=== PATIENT | female | born 1935 | race Caucasian/White ===

== ENCOUNTER → 2016-03-28 | Outpatient (CLI) | payer MEDICARE, OTHER ==
--- NOTE | 2016-03-30 16:52 | DIREP ---
PROCEDURE: BONE DENSITY PERIPHERAL COMPARISON: None. INDICATIONS: Z13.820 OSTEOPOROSIS TECHNIQUE: A dual photon bone densitometry was performed in the lumbar spine and in both the hips. FINDINGS: The bone mineral density as measured from L1 through L4 is 1.268 g/ cm2. The standard deviation of the T-score is +0.6. The bone mineral density in the left femoral neck is 0.937 g/cm2. The standard deviation of the Tscore is - 0.7. The bone mineral density in the right femoral neck is 0.968 g/cm2. The standard deviation of the T-score is -0.5. Based upon these values, the bone mineral density is within normal limits. The 10-year FRAX probability is as follows: The patient has a 1.8 percent chance of an insufficiency hip fracture and a 9.8 percent chance of a major osteoporotic fracture over the next 10 years. CONCLUSION: 1. Normal bone mineral densitometry. 10-year FRAX probability as above. Dictated by: Jluis Cali MD on 03/28/2016 at 02:20 PM Typed by: SANTY on 03/28/2016 at 03:04 PM ETH
== END | disposition home or self-care (01) ==
LOC: BD 13:39
PROVIDERS: ATTEND Physician Assistant Medical
DX: Z13.820 Encounter for screening for osteoporosis (principal); M85.88 Other specified disorders of bone density and structure, other site; M81.0 Age-related osteoporosis without current pathological fracture
CPT/HCPCS: 77080

== ENCOUNTER → 2016-11-22 | Outpatient (CLI) | payer MEDICARE, OTHER ==
[~2016-11-22] VITALS: Ht 152.4 cm; Wt 78.9 kg
[~2016-11-22] MED LIST: LEXISCAN IV STA
--- NOTE | 2016-11-23 19:34 | STRESS ---
DATE OF SERVICE: 11/22/2016 INDICATIONS: An 81-year-old lady with coronary artery disease, peripheral vascular disease, who elected for a stress test to risk stratify coronary artery disease and to evaluate for an obstructive coronary artery lesion. PROCEDURE: The patient presented to [facility] in a fasting condition and she signed the proper consent. Baseline blood pressure was 178/85 mmHg, heart rate of 82, and the EKG showed a normal sinus rhythm without acute ischemic changes. The patient was injected with 0.4 mg of regadenoson followed by the stress dose of technetium sestamibi. One minute post infusion, blood pressure was 180/76 mmHg and heart rate 101, the patient remained asymptomatic, no ST changes of ischemia noted, no arrhythmia. The recovery phase was uneventful. Myocardial perfusion imaging study was performed using technetium sestamibi on the same day as the stress rest protocol showing the followin. The study quality was good, attenuation artifacts were corrected. The prone position was available. 2. LV cavity was stable, no evidence of TID (transient ischemic dilatation). 3. SPECT perfusion imaging study was normal. No perfusion defects, ischemia, or scarring noted. 4. Gated function study showed normal wall motion and wall thickening. EF was 70% and stroke volume 36 mL. IMPRESSION: 1. Nondiagnostic stress portion of the LexiScan. 2. No EKG changes of ischemia. 3. No arrhythmia. 4. Normal hemodynamic response. 5. Myocardial perfusion imaging study was normal, no evidence of perfusion defects, ischemia, or scarring. 6. Gated function study showed normal wall motion and wall thickening. EF was 70%. 7. This study qualifies for a low risk for obstructive coronary artery disease by myocardial perfusion imaging criteria. Morgan Cesar MD DR: UMAIR/nicky JOB# [id number]
--- NOTE | 2016-11-26 16:33 | ECHO ---
DATE OF SERVICE: 11/22/2016 INDICATIONS: An 81-year-old lady with coronary artery disease, elected for an echocardiographic study for evaluation of any wall motion abnormality, structural heart disease or valvular heart condition. FINDINGS: 1. Study quality is fair. 2. Underlying rhythm is sinus rhythm. 3. LV function is preserved around 60%. No significant wall motion abnormality noted, mild concentric LVH. No LVOT obstruction. LV dimensions are normal at 3.8 cm in end diastolic dimension. 4. RV size and EF were normal. 5. Both atria showed mild increase in size. 6. Trace mitral regurgitation, no stenosis, mild degree of calcification seen. The gradient across the mitral valve was 4.5 mmHg suggestive of early stenosis. Mitral valve Doppler signal exam showed obvious E to A reversal with grade 1 diastolic dysfunction. 7. Aortic valve is trileaflet, mildly calcified. Mean velocity was 0.8 m/sec. Aortic valve area was normal by VTI method. No significant regurgitation. 8. Mild tricuspid regurgitation. Pulmonary artery pressure was between 20-25 mmHg. 9. No pericardial effusion seen and inferior vena cava was normal in size at 1.3 cm. IMPRESSION: 1. The underlying rhythm is sinus rhythm. 2. LV function is preserved around 60%. No wall motion abnormality. 3. Mild concentric LVH. No LVOT obstruction. Normal LV dimension. 4. Normal RV size and EF. 5. Trace mitral and aortic regurgitation, no stenosis in both valves. 6. Grade 1 diastolic dysfunction. 7. Normal PA pressure. 8. No pericardial effusion. 9. Inferior vena cava was normal in size. Morgan Cesar MD DR: UMAIR/nicky JOB# [id number]
== END | disposition home or self-care (01) ==
LOC: RAD 09:50
PROVIDERS: ATTEND Internal Medicine
DX: I73.9 Peripheral vascular disease, unspecified (principal); I25.10 Atherosclerotic heart disease of native coronary artery without angina pectoris; I35.1 Nonrheumatic aortic (valve) insufficiency
CPT/HCPCS: 78452; 93017; 93307; A9500; J2785

== ENCOUNTER → 2016-11-27 | Outpatient (CLI) | payer MEDICARE, OTHER ==
[~2016-11-27] MED LIST changes: +ACET325T12 PO; +ASCO500T93 PO; +CALC-101 PO; +CLON0.1T PO; +GLUC-103 PO; +LEVO125T6 PO; -LEXISCAN IV STA; +LISI40TA PO; +MULT1TAB52 PO; +NIFE60TA2 PO; +POTA90TA2 PO; +POTA99TA3 PO
--- NOTE | 2016-11-28 09:49 | DIREP ---
PROCEDURE:US ANKLE BRACHIAL INDEX COMPARISON:None. INDICATIONS:PVD TECHNIQUE:A color duplex Doppler ultrasound examination of the bilateral lower extremities was performed. Color image and bidirectional spectral Doppler wave form analysis, and peak systolic flow measurements of the posterior tibial and dorsalis pedis arteries were performed. FINDINGS: RIGHT LOWER EXTREMITY: EDDA DP: Noncompressible. PT: Noncompressible. POSTERIOR TIBIAL:75.2 cm/sbiphasic DORSALIS PEDIS:71.2 cm/sbiphasic LEFT LOWER EXTREMITY: EDDA DP: 1.0. PT: 1.0. POSTERIOR TIBIAL:45.8 cm/sbiphasic DORSALIS PEDIS:72.5 cm/sbiphasic CONCLUSION: * Noncompressible right COIL WRAPPER and DPA. No significant obstruction by waveforms and velocities. * No significant obstruction by ABIs, waveforms and velocities. ABIs greater than 1.4 indicate noncompressible vessels, likely to have significant peripheral vascular disease (PVD). ABIs of 0.91 to 1.3 indicate no significant obstructive disease. ABIs of 0.41 to 0.90 indicate grade I claudication. ABIs less than 0.4 indicate limb-threatening ischemia of grade I or grade II. Dictated by: NAREN Physician on 11/28/2016 at 08:28 AM ac
== END | disposition home or self-care (01) ==
LOC: NM 15:49
PROVIDERS: ATTEND Internal Medicine
DX: I73.9 Peripheral vascular disease, unspecified (principal); I25.10 Atherosclerotic heart disease of native coronary artery without angina pectoris; I10 Essential (primary) hypertension; I87.2 Venous insufficiency (chronic) (peripheral); E03.9 Hypothyroidism, unspecified; R06.02 Shortness of breath; R60.0 Localized edema; Z68.35 Body mass index [BMI] 35.0-35.9, adult
CPT/HCPCS: 93922; 93970

== ENCOUNTER 2016-12-02 22:07 | Observation (INO) | payer MEDICARE, OTHER ==
[~2016-12-02] VITALS: Ht 152.4 cm; Wt 81.7 kg
--- NOTE | 2016-12-02 22:40 | PCM.EKG ---
[facility] Test Date: 2016-12-02 Test Time: 22:32:00 Pat Name: YANET MORALES Department: Room: 304 Gender: F Survey Analyst: KENDY : 1935 Requested By: PRISCA NUNZE Order Number: [id number] Reading MD: Prisca NUNEZ Measurements Intervals [place] Rate: 76 P: 63 IA: 156 QRS: 14 QRSD: 86 T: 62 QT: 370 QTc: 416 Interpretive Statements Normal sinus rhythm Normal ECG No previous ECG available for comparison Electronically Signed On 12-03-2016 1:20:18 CDT by Prisca NUNEZ Please click the below link to view image of tracing.
--- NOTE | 2016-12-02 22:44 | ER.PDOC ---
General Chief Complaint: General Complaint Stated Complaint: HBP Time seen by MD: 22:40 Source: patient Exam Limitations: no limitations History of Present Illness Initial Comments Chest pain earlier on which went away after taking Tylenol and elevated blood pressure this evening. No chest pain at this time. Timing/Duration: 1-3 hours, gone now Severity/Quality: sharp Radiation: no radiation Prior CP/Workup: Stress Test Aspirin Today: 325 mg x 1, Provided By ED Associated Symptoms: denies symptoms Allergies: Coded Allergies: naproxen (Verified Allergy, Unknown, 12/02/16) Home Meds Reported Medications Clonidine Hcl (CLONIDINE HCL) 0.1 Mg Tablet, 1 TAB PO BID, #30 TAB 2 Refills 12/02/16 Lisinopril (LISINOPRIL) 40 Mg Tablet, 1 TAB PO DAILY, #30 TAB 5 Refills 12/02/16 Levothyroxine Sodium (LEVOTHYROXINE SODIUM) 125 Mcg Tablet, 1 TAB PO DAILY, #30 TAB 5 Refills 12/02/16 Past Medical History Medical History: hypertension, thyroid disease Surgical History: cholecystectomy, knee LMP (females 10-50): postmenopause Social History Smoking: non-smoker Alcohol Use: none Drug Use: none Constitutional: no symptoms reported Respiratory: no symptoms reported Cardiovascular: see HPI Gastrointestinal: no symptoms reported Musculoskeletal: no symptoms reported All Other Systems: Reviewed and Negative Physical Exam General Appearance: No Apparent Distress, WD/WN Neck: Non-Tender Respiratory: chest non-tender, lungs clear, normal breath sounds, no respiratory distress, no accessory muscle use Cardiovascular: Normal Peripheral Pulses, Regular Rate, Rhythm, No Edema, No Gallop, No JVD, No Murmur Gastrointestinal: Normal Bowel Sounds, No Organomegaly, No Pulsatile Mass, Non Tender, Soft Extremities: Normal Range of Motion, Non-Tender, Normal Inspection, No Pedal Edema, No Calf Tenderness, Normal Capillary Refill Neurologic/Psychiatric: physician allergist immunologist II-XII NML as Tested, No Motor/Sensory Deficits, Alert, Normal Mood/Affect, Oriented x 3 Skin: Normal Color EKG/XRAY/CT/US EKG Comments: Normal XRAY: chest (Nothing acute) Departure Time of Disposition: 23:54 Disposition: 09 ADMITTED INPATIENT Impression: Primary Impression: Hypertensive urgency Additional Impression: Chest pain Condition: Stable Referrals: KARISHMA SWANN (PCP) PRIMARY CARE PROVIDER Comments Admitted to Dr. Cesar Problem Qualifiers Additional Impression: Chest pain Chest pain type: unspecified Qualified Codes: R07.9 - Chest pain, unspecified PRISCA NUNEZ MD Dec 02, 2016 22:44
[2016-12-02 22:51] LABS: BASOPHIL # 0.1 10^3/uL (0.0-0.1); BASOPHIL % 0.6 % (0.0-0.2); EOSINOPHIL # 0.3 10^3/uL (0.0-0.2); EOSINOPHIL % 2.1 % (0.0-5.0); HEMOGLOBIN 11.2 g/dL (12.0-15.0); LYMPHOCYTES # 2.9 10^3/uL (1.0-4.8); LYMPHOCYTES % 23.2 % (24.0-44.0); MEAN CELL HGB 29.9 pg (26-34); MEAN CORP VOLUME 93.3 fL (78-100); MEAN PLATELET VOLUME 11.7 fL (7.8-11.0); MONOCYTES # 0.9 10^3/uL (0.3-0.8); NEUTROPHIL # 8.4 10^3/uL (1.8-7.7); NEUTROPHILS % 66.9 % (41.0-85.0); RED CELL DISTRIBUTION WIDTH 13.6 % (11.5-14.5); WHITE BLOOD CELL 12.5 10^3/uL (4.5-11.0)
[2016-12-02] MEDS ORDERED: ASPIRIN ONE (22:55)
[2016-12-02] MEDS ORDERED: ASPIRIN PO PRN (23:00)
[2016-12-02] MEDS ORDERED: LISI40TA PO (23:11)
[2016-12-02] MEDS ORDERED: LEVO125T6 PO (23:11)
[2016-12-02] MEDS ORDERED: CLON0.1T PO (23:11)
[2016-12-02] MEDS ORDERED: TRANDATE IV ONE (23:13)
[2016-12-02 23:18] LABS: ALANINE AMINOTRANSFERASE 29 U/L (12-78); ALKALINE PHOSPHATASE 69 U/L (50-136); ASPARTATE AMINO TRANSFERASE 23 U/L (0-35); CALCIUM 10.3 mg/dL (8.4-10.5); CARBON DIOXIDE 24.1 mmol/L (20.0-32); GLUCOSE 123 mg/dL (70-110)
[2016-12-02] MEDS ORDERED: TRANDATE IV STA (23:19)
--- NOTE | 2016-12-02 23:31 | DIREP ---
PROCEDURE:CHEST 1 VIEW COMPARISON:None. INDICATIONS:chest pain FINDINGS: LUNGS/PLEURA:Lungs are clear of focal consolidation. No evidence of pleural effusion. VASCULATURE:Unremarkable pulmonary vasculature. CARDIAC:No cardiac silhouette abnormality or cardiomegaly. EMMY/MEDIASTINUM:No visible mass or adenopathy. BONES:No acute fracture. OTHER:No additional findings. CONCLUSION: 1. No acute cardiopulmonary changes. Dictated by: Jose Rodríguez M.D. on 12/02/2016 at 11:30 PM
--- NOTE | 2016-12-02 23:55 | PRM.ACF1 ---
Date and Time Date and Time Time: 23:54 Admission Criteria Forms HYPERTENSION Clinical Indications for Admission to Inpatient Care ( Place "X" for any and all applicable criteria): Admission is indicated for 1 or more of the following(1)(2)(3)(4)(5)(6)(7)(8)(9) (10): [ ]I. Hypertensive emergency, with evidence of acute and progressing target organ disease as indicated by 1 or more of the following: [ ]a) Hypertensive encephalopathy (eg, confusion, altered mental status) [ ]b) Cerebral infarction [ ]c) Intracranial hemorrhage [ ]d) Myocardial ischemia or infarction [ ]e) Heart failure (eg. Pulmonary edema) [ ]f) Aortic dissection [ ]g) Increased creatinine (new) with reduction of more than 50% in estimated glomerular filtration rate from baseline [ ]h) Seizure [ ]i) Papilledema [ ]j) Retinal hemorrhage [ ]k) Microangiopathic hemolytic anemia [x ]l) Other significant finding secondary to hypertension [ ]II. Adrenergic or sympathomimetic crisis (eg, severe hypertension due to pheochromocytoma crisis, cocaine or amphetamine intoxication, or clonidine withdrawal) [x ]III. Severe hypertension (SBP greater than 180 mmHg or DBP greater than 110 mmHg or greater than the 95th percentile for age, gender, and height in pediatric patients) that cannot be controlled (eg, to SBP less than 160 mmHg and DBP less than 100 mmHg in adults) by treatment with oral medication in emergency department or observation care Extended stay beyond goal length of stay may be needed for(11)(12)(13): [ ]a) Persistent hypertensive encephalopathy [ ]b) Continuation of pulmonary edema [ ]c) Recurring or persistent severe hypertension [ ]d) Target organ damage (eg, angina, stroke, aortic dissection) The original [employer] content created by [employer] has been revised. The portions of the content which have been revised are identified through the use of italic text, and [employer] has neither reviewed nor approved the modified material. All other unmodified content is copyright [employer]. Please see references footnoted in the original [employer] edition 2014 PRISCA NUNEZ MD Dec 02, 2016 23:55
--- NOTE | 2016-12-02 23:55 | NUR ---
RE[facility]
[2016-12-03] VITALS: BP 164/65
--- NOTE | 2016-12-03 | NUR ---
Patient admitted to [facility] via ER. Wheeled up in wheelchair by Physiotherapy Aide NIRAJ Ugalde. Received report from Promise Bullard RN
[2016-12-03] MEDS ORDERED: ACET325T12 PO (00:29)
[2016-12-03] MEDS ORDERED: CALC-101 PO (00:29)
[2016-12-03] MEDS ORDERED: ASCO500T93 PO (00:29)
[2016-12-03] MEDS ORDERED: MULT1TAB52 PO (00:29)
[2016-12-03] MEDS ORDERED: GLUC-103 PO (00:29)
[2016-12-03] MEDS ORDERED: POTA90TA2 PO (00:36)
[2016-12-03] MEDS ORDERED: POTA99TA3 PO (00:39)
--- NOTE | 2016-12-03 02:57 | NUR ---
Patient resting in bed with eyes closed. Resp even and non labored. No s/s of distress noted at this time. Will continue to monitor. Call light within reach. Daughters at bedside
[2016-12-03 04:31] VITALS: BP 146/94
--- NOTE | 2016-12-03 06:36 | NUR ---
Report Report given to Jose Aguilar LVN
--- NOTE | 2016-12-03 06:56 | NUR ---
REPORT Received report, assumed care for patient.
[2016-12-03] MEDS ORDERED: PROCARDIA PO STA (08:09)
[2016-12-03 08:29] VITALS: BP 160/85
--- NOTE | 2016-12-03 08:44 | PRM.DC ---
Discharge Summary Date of Discharge: Dec 03, 2016 Time of Request to Discharge: 08:32 Reason for Visit: Hypertensive urgency Additional Comments Admitted through ED yesterday for elevated blood pressure and episode of chest pain prior to admission. Cardiac enzymes have been negative. Patient History: Bone cancer G8 SISTER FH: breast cancer G8 SISTER FH: pancreatic cancer 32 MOTHER FH: thyroid cancer G8 SISTER History Present Illness: General: Alert, Oriented X3, Cooperative, No acute distress HEENT: Atraumatic, Mucous membr. moist/pink Lungs: Clear to auscultation, Normal air movement Heart: Regular rate Extremities: No cyanosis Neuro: Normal speech, Normal tone Psych/Mental Status: Mental status NL, Mood NL Scheduled Ascorbic Acid (C-500), 500 MG PO DAILY, (Reported) Calcium Carbonate/Vitamin D3 (Calcium + Vitamin D Tablet), 1 EACH PO DAILY, ( Reported) Clonidine Hcl (Clonidine Hcl), 1 TAB PO BID, (Reported) Gluc/Og-MSM#1/C/Kory/Rancho/Bor (Osteo Bi-Flex Caplet), 2 EACH PO DAILY, ( Reported) Levothyroxine Sodium (Levothyroxine Sodium), 1 TAB PO DAILY, (Reported) Lisinopril (Lisinopril), 1 TAB PO DAILY, (Reported) Multivitamin (Multivitamins), 1 EACH PO DAILY, (Reported) Potassium Gluconate (Potassium Gluconate), 99 MG PO DAILY, (Reported) Scheduled PRN Acetaminophen (Tylenol), 1,250 MG PO BID PRN for PAIN, (Reported) Sepsis Evaluation @ Discharge Course Blood Pressure Systolic: 160 Blood Pressure Diastolic: 85 Blood Pressure Mean: 110 Plan Problems: (1) Hypertensive urgency Status: Acute ICD Code: I16.0 - Hypertensive urgency SNOMED: 838077519 (2) Chest pain Status: Acute ICD Code: R07.9 - Chest pain, unspecified SNOMED: [id number] Discharge Date: Dec 03, 2016 Discharge Disposition: Stable Plan IMPRESSION: Hypertensive urgency chest pain with prior PCI Hypomagnesemia Peripheral vascular disease. PLAN: Patient will receive a morning dose of Procardia XL and a magnesium infusion before discharge. Discharge home Continue home medications plus Procardia XL 30 mg Follow up with Ely Miller NP, for blood pressure check in a week. Return to ER for repeat hypertensive urgency. Will set up appointment for venous procedure in office. Problem Qualifiers (1) Chest pain: Chest pain type: unspecified Qualified Codes: R07.9 - Chest pain, unspecified STEPH MILLER CERTIFIED ORTHOTIST/PEDORTHIST Dec 03, 2016 08:44
[2016-12-03] MEDS ORDERED: NIFE60TA2 PO (08:46)
[2016-12-03 09:36] VITALS: BP 160/85
--- NOTE | 2016-12-03 09:37 | NUR ---
DISCHARGE Patient discharged home. Relinquished care for patient.
== END 2016-12-03 10:00 | disposition home or self-care (01) ==
LOC: ER 22:07 → MS 22:37 → EDPENDDISTM 12-03 09:37
PROVIDERS: ADMIT Internal Medicine; ATTEND Internal Medicine
DX: I16.0 Hypertensive urgency (principal); I10 Essential (primary) hypertension; E07.9 Disorder of thyroid, unspecified; R07.9 Chest pain, unspecified; E83.42 Hypomagnesemia; I73.9 Peripheral vascular disease, unspecified; Z98.890 Other specified postprocedural states
CPT/HCPCS: 36415 ×2; 71010; 80053; 82550 ×2; 82553 ×2; 83880; 84484 ×2; 85025; 85379; 85610; 93005; 96374; 99285; G0378 ×11; J3490

== ENCOUNTER → 2016-12-24 | Outpatient (CLI) | payer MEDICARE, OTHER ==
[~2016-12-24] MED LIST changes: +ACET500T73 PO; +ASCO10002 PO; +ASPI81TA52 PO; +CALC-76 PO; +LEVO137T4 PO
--- NOTE | 2016-12-24 13:28 | DIREP ---
PROCEDURE:US KIDNEYS-BILAT COMPARISON:[facility], [place], [place] RENAL FLOW/FUNCTION, 12/24/2016, 09:04 AM. INDICATIONS:HTN TECHNIQUE:Ultrasound examination was performed of the kidneys and bladder. FINDINGS: RIGHT KIDNEY:9.6 x 4.2 x 4.2 cm. Cortex: 1.0 cm LEFT KIDNEY:9.4 x 4.3 x 6.6 cm. Cortex: 1.0 cm BLADDER: Pre-void: 5.1 x 5.7 x 4.9 cm. Volume: 99.9 ml Post-void: 3.2 x 5.8 x 3.1 cm. Volume: 29.5 ml Residual: 70.4 ml RIGHT KIDNEY: An extrarenal pelvis is noted. No hydronephrosis is demonstrated. LEFT KIDNEY: No hydronephrosis. Cortical hypoechoic cystic lesion measures 2.2 x 2.5 x 2.1 cm. BLADDER:Normal. OTHER:Negative. CONCLUSION:There are findings of a 2.5 cm left renal cyst. Both kidneys are normal in size. No hydronephrosis is demonstrated bilaterally. Dictated by: NAREN Physician on 12/24/2016 at 12:11 PM ac
--- NOTE | 2016-12-25 08:29 | DIREP ---
PROCEDURE:NM RENAL FLOW/FUNCTION COMPARISON:None. INDICATIONS:HTN TECHNIQUE:After obtaining the patient's consent, a bolus intravenous pharmaceutical injection was completed. Sequential renal flow images were performed followed by sequential static images. Quantitative analysis was performed of both kidneys. PHARMACEUTICAL(S):10mCi Tc-99m MAG-3 FINDINGS: TIME TO PEAK (LEFT):Slightly delayed at 6.48 minutes TIME TO PEAK (RIGHT):Slightly delayed at 9.48 minute FUNCTION:Decreased uptake in perfusion of the left kidney in comparison of the right. Split renal function is approximately 39% left and 61% right.. OBSTRUCTION:Relatively symmetric excretion bilaterally. Left 30 minutes to peak 0.4. Right 30 minutes to peak 0.6. Left 30 minutes to 3 minute ratio 0.5. Right 30 minutes 3 ratio 0.8. BLADDER:Normal. CONCLUSION: 1. Mildly delayed time to peak bilaterally with relatively symmetric excretion. 2. Delayed excretion, with 30 minutes to peak ratios that are increased bilaterally. 3. There is mild decreased left renal split function in comparison of the right. Dictated by: Tucker Locke DO on 12/25/2016 at 08:17 AM
== END | disposition home or self-care (01) ==
LOC: RAD 08:53
PROVIDERS: ATTEND Internal Medicine Nephrology
DX: I12.9 Hypertensive chronic kidney disease with stage 1 through stage 4 chronic kidney disease, or unspecified chronic kidney disease (principal); N18.3 Chronic kidney disease, stage 3 (moderate); M19.92 Post-traumatic osteoarthritis, unspecified site
CPT/HCPCS: 76770; 78707; A9562

== ENCOUNTER → 2017-01-01 | Day surgery (SDC) | payer MEDICARE, OTHER ==
[2016-12-28 10:41] LABS: BASOPHIL % 0.3 % (0.0-0.2); EOSINOPHIL # 0.2 10^3/uL (0.0-0.2); EOSINOPHIL % 1.7 % (0.0-5.0); HEMOGLOBIN 11.8 g/dL (12.0-15.0); LYMPHOCYTES # 1.8 10^3/uL (1.0-4.8); LYMPHOCYTES % 15.2 % (24.0-44.0); MEAN CELL HGB 29.6 pg (26-34); MEAN CELL HGB CONCENTRATION 31.1 g/dL (33-37); MEAN PLATELET VOLUME 11.4 fL (7.8-11.0); MONOCYTES # 0.6 10^3/uL (0.3-0.8); MONOCYTES % 5.2 % (5.0-12.0); NEUTROPHIL # 9.1 10^3/uL (1.8-7.7); NEUTROPHILS % 77.4 % (41.0-85.0); RED CELL DISTRIBUTION WIDTH 13.9 % (11.5-14.5); WHITE BLOOD CELL 11.8 10^3/uL (4.5-11.0)
[2016-12-28 10:59] LABS: CALCIUM 9.6 mg/dL (8.4-10.5); CARBON DIOXIDE 25.8 mmol/L (20.0-32)
[2016-12-28 11:17] VITALS: BP 158/86
--- NOTE | 2016-12-28 13:11 | DIREP ---
PROCEDURE:CHEST 2 VIEWS COMPARISON:[facility], [place], XRAY CHEST SINGLE VW, 12/02/2016, 10:59 PM. INDICATIONS:PRE-OP BLE ARTERIOGRAM, PAD FINDINGS: LUNGS/PLEURA:Mild hyperinflation with flattening of the diaphragm. Mild interstitial prominence. Findings may reflect senescent changes or underlying chronic lung disease such as COPD. No suspicious airspace consolidation or pleural effusion. No pneumothorax identified. Overall appearance is similar to the previous study. VASCULATURE:Normal. Unremarkable pulmonary vasculature. CARDIAC:Normal. No cardiac silhouette abnormality or cardiomegaly. MEDIASTINUM:Mediastinal contours are within normal limits. BONES:Mild degenerative changes of the thoracic spine. OTHER:Negative. CONCLUSION: 1. Senescent changes versus potential underlying chronic lung disease such as COPD. No superimposed acute cardiopulmonary abnormality. Dictated by: Jarad Saavedra M.D. On 12/28/2016 at 01:09 PM
[2017-01-01] VITALS (10 sets, daily range): BP systolic 128–183; BP diastolic 64–84
[~2017-01-01] VITALS: Ht 152.4 cm; Wt 82.1 kg
[~2017-01-01] MED LIST changes: +BENADRYL PO ONE; +CALAN ONE; +HEPARIN ONE; +NS 1000ML 1,000 ML ONE; +SUBLIMAZE ONE; +VERSED ONE; +XYLOCAINE ONE
--- NOTE | 2017-01-01 15:36 | CCLR ---
DATE OF PROCEDURE: 01/01/2017 PERIPHERAL ARTERIOGRAPHY REPORT PROCEDURES PERFORMED: 1. Bilateral lower extremity arteriogram via left femoral artery access. 2. Selective right lower extremity arteriography with distal subtraction imaging of the infrapopliteal segment. COMPLICATIONS: None. BLOOD LOSS: Minimal. INDICATIONS: 1. Abnormal ABIs on November 27, 2016 with noncompressible right lower extremity vessels and biphasic flow. 2. Significant symptoms of class 2B, moderate to severe claudication. 3. Multiple PAD risk factors. HISTORY OF PRESENT ILLNESS: The patient had abnormal ABIs for noncompressible right-sided vessels. She reported significant symptoms that have worsened recently with interference with daily activity. She had a clinical examination done showing depressed pulses on the right foot. Therefore, she was elected for an arteriography and possible intervention. DESCRIPTION OF PROCEDURE: The patient presented to the [facility] in a fasting condition, she signed the proper consent, lab results were reviewed, allergies verified, and all questions answered. The patient was taken to the [facility] in a fasting condition. The left groin area was prepped and draped and sterilized in the proper fashion. 1% lidocaine was used for local analgesia. A Micropuncture technique was utilized to gain access into the left femoral artery followed by advancing a 6-Malawian sheath into the left femoral artery. I then managed to advance an Omniflush catheter over the guidewire, stationed in the abdominal aorta for an abdominal aortogram and bilateral lower extremity arteriography using the bolus juan luis technique. I then managed to cross over from the left to the right iliac artery using the Omniflush catheter and an Aquatrack wire. Subselective lower extremity arteriography with digital subtraction imaging of the infrapopliteal segment in the right lower extremity was performed. After careful examination of the angiographic images, the case was concluded with the application of a 6-Malawian Angio-Seal at the left femoral artery access site for hemostasis. The patient tolerated the procedure well and left the [facility] in a stable condition. I educated the patient and the family on the results of the peripheral arteriogram. HEMODYNAMICS: 1. Aortic pressure at the beginning of the case was 172/73 mmHg and mean 112 mmHg. 2. Abdominal aorta was free of any obstructive disease, no calcification or aneurysm. Left lower extremity arteriography showed the followin. Left iliac artery was free of disease. 2. Left common femoral artery was free of disease. 3. Left SFA was free of disease. 4. Left profunda femoris was free of disease. 5. Left popliteal artery was free of disease. There was a 3-vessel runoff at the level of the left ankle with a small size anterior tibial, peroneal, and posterior tibial arteries. No significant disease noted. Right lower extremity arteriography showed the followin. Right iliac artery was free of disease. 2. Right external iliac artery was free of disease. 3. Right common femoral artery was free of disease. 4. Right SFA was free of disease. 5. Right profunda femoris was free of disease. 6. Right popliteal artery was free of disease. 7. Right TP trunk was free of disease. 8. Three-vessel runoff at the level of the right ankle with anterior tibial, posterior tibial, and peroneal arteries. Those were small-sized, terminal vessels without obstruction. IMPRESSION: 1. Normal abdominal aortogram. 2. No PAD noted at any segment in the left and right arteriograms. 3. The procedure was well tolerated. RECOMMENDATIONS: 1. Groin care. 2. Workup for nonvascular etiology for claudication and lower extremity symptoms. 3. Primary prevention of PAD. 4. Same-day discharge once the patient meets discharge criteria. Morgan Cesar MD DR: UMAIR/nicky JOB# [id number]
--- NOTE | 2017-02-28 16:18 | CCLR ---
DATE OF PROCEDURE: 01/01/2017 ADDENDUM Date of Procedure: January 01, 2017 CLARIFICATION: Upon crossover performed from the left femoral artery access to engage the right lower extremity for the selective right lower extremity, the catheter was stationed in the right common iliac artery. The catheter was an Omniflush catheter. The crossing technique was done using the Omniflush catheter and Aquatrack wire, crossing from the left common femoral artery into the right common iliac artery for selective right lower extremity arteriography. Morgan Cesar MD DR: UMAIR/nicky JOB# [id number]
== END | disposition home or self-care (01) | DRG 300 ==
LOC: SDC 00:23
PROVIDERS: ATTEND Internal Medicine
DX: I73.9 Peripheral vascular disease, unspecified (principal); I12.9 Hypertensive chronic kidney disease with stage 1 through stage 4 chronic kidney disease, or unspecified chronic kidney disease; N18.4 Chronic kidney disease, stage 4 (severe); E03.9 Hypothyroidism, unspecified; I25.10 Atherosclerotic heart disease of native coronary artery without angina pectoris; I35.1 Nonrheumatic aortic (valve) insufficiency; M17.9 Osteoarthritis of knee, unspecified; E66.9 Obesity, unspecified; Z68.35 Body mass index [BMI] 35.0-35.9, adult; Z98.890 Other specified postprocedural states; Z79.899 Other long term (current) drug therapy
CPT/HCPCS: 36245; 36415; 71020; 75630; 75716; 80048; 85025; 85610; 99152; C1760; C1769 ×2; C1887; C1894; J1644 ×2; J2250; J3010; J3490; J7030 ×2; Q9967; 36200; Q9966